=== PATIENT | male | born 1990 | race Caucasian/White ===

== ENCOUNTER 2016-06-29 16:57 | Emergency (ER) | payer MEDICAID ==
[2016-06-29 17:20] VITALS: BP 133/83; PULSE 104; RESP 16; TEMP 98.7; O2SAT 100
[2016-06-29] MEDS ORDERED: Sodium Chloride 0.9% 1,000 ML IV STA (17:38)
--- NOTE | 2016-06-29 17:56 | ED PDOC ---
Syncope/Near Syncope/Dizzyness Time Seen by Provider: 06/29/16 17:27 Chief Complaint (Nursing): Dizziness/Lightheaded Chief Complaint (Provider): Dizziness History Per: Patient History/Exam Limitations: no limitations Onset/Duration Of Symptoms: Hrs (x1.5-2) Current Symptoms Are (Timing): Still Present Activity At Onset Of Symptoms: Other (s/p eating pot brownie) Seizure Or Post-ictal Symptoms: None Fall Associated With With Symptoms: No Severity: Moderate Additional Complaint(s): Vikas Galloway is a 26 year old male, with no pertinent past medical history, who presents to the ED on 06/29/16 for the evaluation of a moderate amount of lightheadedness/dizziness that he has experienced over the past 1.5-2 hours after having eaten a pot brownie at 15:00. Sensation, further described as " room spinning", has been accompanied by two episodes of non-bilious/non-bloody vomiting, last of which was as of just prior to arrival. Denies abdominal pain or diarrhea. No additional drug or alcohol use. Of note, patient reportedly uses marijuana 2x/month and has previously ingested edibles without issue. Last meal prior to brownie was at 09:00. PMD: none Past Medical History Reviewed: Historical Data, Nursing Documentation, Vital Signs Vital Signs: Last Vital Signs Temp 98.7 F 06/29/16 17:17 Pulse 104 H 06/29/16 17:17 Resp 16 06/29/16 17:17 BP 133/83 06/29/16 17:17 Pulse Ox 100 06/29/16 17:17 - Medical History PMH: No Chronic Diseases - Surgical History Surgical History: No Surg Hx - Family History Family History: States: No Known Family Hx - Social History Current smoker - smoking cessation education provided: No Alcohol: Social Drugs: Cannabis - Home Medications Home Medications: Ambulatory Orders Medication Instructions Recorded Meclizine [Antivert] 25 mg PO Q6 PRN #20 tab 06/29/16 Ondansetron [Zofran] 4 mg PO Q8H PRN #20 tab 06/29/16 - Allergies Allergies/Adverse Reactions: Allergies Allergy/AdvReac Type Severity Reaction Status Date / Time No Known Allergies Allergy Verified 06/29/16 17:20 Review of Systems Cardiovascular: Positive for: Light Headedness Gastrointestinal: Positive for: Vomiting (x2, non-bilious/non-bloody). Negative for: Abdominal Pain, Diarrhea Neurological: Positive for: Dizziness (room spinning) Physical Exam - Reviewed Nursing Documentation Reviewed: Yes Vital Signs Reviewed: Yes - Physical Exam Appears: Positive for: Non-toxic, No Acute Distress (tired appearing) Head Exam: Positive for: ATRAUMATIC, NORMOCEPHALIC Skin: Positive for: Normal Color, Warm, Dry Eye Exam: Positive for: EOMI, PERRL, Conjunctival injection (b/l). Negative for : Nystagmus ENT: Positive for: Pharynx Is (clear), Other (dry mucous membranes) Cardiovascular/Chest: Positive for: Tachycardia (regular rhythm). Negative for : Murmur Respiratory: Positive for: Normal Breath Sounds. Negative for: Respiratory Distress Gastrointestinal/Abdominal: Positive for: Normal Exam, Soft. 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 Negative for: Motor/Sensory Deficits - Laboratory Results Result Diagrams: 06/29/16 18:40 06/29/16 18:40 - ECG O2 Sat by Pulse Oximetry: 100 (RA) Pulse Ox Interpretation: Normal Medical Decision Making Medical Decision Makin:27 Initial Impression: marijuana adverse reaction, dehydration Initial Plan: * EKG * Labs * Magnesium * Phosphorus * Alcohol Serum * Glucose/Blood/POC * Urine Drug Screen * IV NS 1000ml at 1000mls/hr * Zofran 8mg IV * Meclizine 25mg PO * Reevaluation 9p No clinically significant lab abnormalities Pt feels better and tolerated PO. Scribe Attestation: Documented by Patsy Beebe, acting as a scribe for Ava Bragg MD. Provider Scribe Attestation: All medical record entries made by the Scribe were at my direction and personally dictated by me. I have reviewed the chart and agree that the record accurately reflects my personal performance of the history, physical exam, medical decision making, and the department course for this patient. I have also personally directed, reviewed, and agree with the discharge instructions and disposition. Disposition - Clinical Impression Clinical Impression: Cannabis abuse, Dizziness Counseled Patient/Family Regarding: Studies Performed, Diagnosis, Need For Followup, Rx Given - Disposition Referrals: [facility] [Outside] Disposition: Routine/Home Disposition Time: 21:00 Condition: IMPROVED Prescriptions: Meclizine [Antivert] 25 mg PO Q6 PRN #20 tab PRN Reason: Dizziness Ondansetron [Zofran] 4 mg PO Q8H PRN #20 tab PRN Reason: Nausea/Vomiting Instructions: Cannabis Abuse (ED), Dizziness (ED)
[2016-06-29 18:56] LABS: BASO % 0.3 % (0.0-2.0); EOS % 0.3 % (0.0-4.0); HEMATOCRIT 42.5 % (35.0-51.0); LYMPH # 0.7 K/uL (1.0-4.3); LYMPH % 7.5 % (20.0-40.0); MEAN CORPUSCULAR HEMOGLOBIN 25.6 pg (27.0-31.0); MEAN CORPUSCULAR HGB CONC 32.4 g/dL (33.0-37.0); MEAN PLATELET VOLUME 9.6 fl (7.2-11.7); MONO # 0.5 K/uL (0.0-0.8); MONO % 5.8 % (0.0-10.0); NEUT # 7.9 K/uL (1.8-7.0); NEUT % 86.1 % (50.0-75.0); NRBC % 0.1 % (0.0-0.0); PLATELET COUNT 162 K/uL (130-400); WHITE BLOOD COUNT 9.2 K/uL (4.8-10.8)
[2016-06-29 19:00] LABS: ALB/GLOB RATIO 1.2 (1.0-2.1); ALCOHOL SERUM < 10 mg/dl (0-10); ALKALINE PHOSPHATASE 54 U/L (38-126); ALT/SGPT 46 U/L (21-72); AST/SGOT 32 U/L (17-59); BILIRUBIN,TOTAL 0.5 mg/dl (0.2-1.3); BLOOD UREA NITROGEN 14 mg/dl (9-20); CALCIUM 9.7 mg/dL (8.4-10.2); CARBON DIOXIDE 27 mmol/L (22-30); CHLORIDE 102 mmol/L (98-107); GFR AFRICAN-AMERICAN > 60; GLUCOSE,RANDOM 108 mg/dL (75-110); MAGNESIUM 1.9 MG/DL (1.6-2.3); PHOSPHOROUS 2.6 mg/dl (2.5-4.5); POTASSIUM 4.8 MMOL/L (3.6-5.0); SODIUM 138 mmol/l (132-148); TOTAL PROTEIN 8.6 G/DL (6.3-8.2)
[2016-06-29 21:18] LABS: NEUTROPHIL 84 % (42-75); TOTAL CELLS COUNTED 100
[2016-06-29 21:21] LABS: LARGE PLATELETS PRESENT
--- NOTE | 2016-06-30 07:43 | CARD ---
APPROVED REPORT EKG Measurement Heart [id number] <Conclusion> Normal sinus rhythm ST elevation, probably due to early repolarization Borderline ECG
== END 2016-06-29 21:46 | disposition home or self-care (01) ==
LOC: H.ER 16:57
DX: F12.10 Cannabis abuse, uncomplicated (principal); R42 Dizziness and giddiness
CPT/HCPCS: 80053; 82948; 83735; 84100; 85025; 93005; 99282; G0480; J2405; J7040